=== PATIENT | female | born 1970 | race Caucasian/White ===

== ENCOUNTER → 2024-09-27 | Outpatient (CLI) | payer BC ==
[2024-09-27 17:38] LABS: URINE WBC 0 /hpf (0-3)
[2024-09-27 17:50] LABS: BASO # 0.05 K/mm3 (0.02-0.10); EOS # 0.12 K/mm3 (0.04-0.40); EOS % 2.1 % (1.0-5.0); HEMATOCRIT 40.6 % (37.0-47.0); HEMOGLOBIN 13.5 g/dL (12.5-16.0); LYMPH# 1.82 K/mm3 (1.50-4.00); MEAN CELL VOLUME 92 fl (78-100); MEAN CORPUSCULAR HEMOGLOBIN 31 pg (27-31); MEAN CORPUSCULAR HGB CONC 33 g/dL (33-37); MEAN PLATELET VOLUME 8.8 fl (7.4-10.4); MONO # 0.42 K/mm3 (0.20-0.80); NEU # 3.43 K/mm3 (1.40-6.50); PLATELET COUNT 304 K/mm3 (130-400); RED BLOOD COUNT 4.42 M/mm3 (4.10-5.30); RED CELL DISTRIBUTION WIDTH 12.8 % (11.5-14.5); WHITE BLOOD COUNT 5.9 K/mm3 (4.8-10.8)
[2024-09-27 17:51] LABS: ALBUMIN 4.1 g/dL (3.5-5.0)
[2024-09-27 17:52] LABS: CALCIUM 9.6 mg/dL (8.3-10.5)
[2024-09-27 17:53] LABS: TOTAL PROTEIN 6.5 g/dL (6.4-8.3)
[2024-09-27 17:55] LABS: TOTAL BILIRUBIN 0.5 mg/dL (0.2-1.2)
[2024-09-27 18:10] LABS: PH-URINE 6.5 (5.0 - 8.0); URINE APPEARANCE CLEAR (CLEAR); URINE BILIRUBIN NEGATIVE (NEGATIVE); URINE BLOOD NEGATIVE (NEGATIVE); URINE COLOR YELLOW (YELLOW); URINE GLUCOSE NEGATIVE (NEGATIVE); URINE KETONE TRACE (NEGATIVE); URINE LEUKOCYTE ESTERASE NEGATIVE (NEGATIVE); URINE NITRATE NEGATIVE (NEGATIVE); URINE PROTEIN(semi-quant) NEGATIVE (NEGATIVE)
== END ==
LOC: LAB 16:57
PROVIDERS: Family Medicine
DX: Z01.818 Encounter for other preprocedural examination (principal)